=== PATIENT | female | born 1985 | race African-American/Black ===

== ENCOUNTER 2017-11-20 19:27 | Emergency (ER) | payer OTHER ==
[~2017-11-20] VITALS: Ht 167.6 cm; Wt 59.9 kg
[2017-11-20] MEDS ORDERED: ESCI10TA PO (19:47)
[2017-11-20] MEDS ORDERED: LORA-259 PO (19:47)
[2017-11-20] MEDS ORDERED: HYDR-500 PO (19:47)
[2017-11-20 20:28] LABS: BASOPHILS # (AUTO) 0.1 K/uL (0.0-8.0); BASOPHILS % (AUTO) 0.7 % (0.0-2.0); EOSINOPHILS # (AUTO) 0.2 K/uL (0.0-0.7); EOSINOPHILS % (AUTO) 3.4 % (0.0-7.0); HEMATOCRIT 33.5 % (31.2-41.9); HEMOGLOBIN 11.7 g/dL (10.9-14.3); LYMPHOCYTES % (AUTO) 28.7 % (20.5-51.5); MEAN CORPUSCULAR HGB CONC 35 g/dL (32.3-35.6); MEAN CORPUSCULAR VOLUME 99.9 fL (75.5-95.3); MONOCYTES # (AUTO) 0.4 K/uL (2.0-10.0); MONOCYTES % (AUTO) 6.6 % (0.0-11.0); NEUTROPHILS # (AUTO) 4.1 K/uL (1.8-8.9); NEUTROPHILS % (AUTO) 60.6 % (38.5-71.5); PLATELET COUNT (AUTO) 284 K/uL (179-408); RED BLOOD CELL COUNT(AUTO) 3.35 MIL/uL (3.63-4.92); WHITE BLOOD COUNT (AUTO) 6.8 K/uL (3.8-11.8)
[2017-11-20 20:36] LABS: CREATININE 0.8 mg/dL (0.6-1.3); POTASSIUM 3.5 mmol/L (3.5-5.1)
[2017-11-20 20:42] LABS: BILIRUBIN,DIRECT 0.2 mg/dL (0.0-0.2); BILIRUBIN,TOTAL 0.7 mg/dL (0.2-1.0); TOTAL PROTEIN, SERUM 7.6 g/dL (6.4-8.2)
--- NOTE | 2017-11-20 21:40 | NUR ---
Patient discharged to home in stable conditon. Written and verbal after care instructions given. Patient verbalizes understanding of instructions.
[2017-11-20 21:41] VITALS: BP 111/59
== END 2017-11-20 21:41 | disposition home or self-care (01) ==
LOC: ER 19:30
DX: R00.2 Palpitations (principal); G47.9 Sleep disorder, unspecified
CPT/HCPCS: 36415; 70030-TC; 70360; 71045; 84443; 84479; 84703; 85025; 85730; 93005; A4663

== ENCOUNTER 2017-11-24 21:01 | Emergency (ER) | payer OTHER ==
[~2017-11-24] VITALS: Ht 167.6 cm; Wt 60.3 kg
[~2017-11-24 21:01] MED LIST: ESCI10TA PO; HYDR-500 PO; LORA-259 PO
[2017-11-24] MEDS ORDERED: ACETAMINOPHEN ES 500 MG TABLET ONE (22:50)
[2017-11-24] MEDS ORDERED: methylPREDNISolone ACETATE 40 MG VIAL ONE (22:50)
[2017-11-24] MEDS: methylPREDNISolone ACETATE 40 MG VIAL IM ONE (22:52)
[2017-11-24] MEDS: ACETAMINOPHEN 325 MG TABLET PO ONE (22:52)
[2017-11-24 22:53] VITALS: BP 110/66
[2017-11-28] MEDS ORDERED: CHOL10005 PO (20:10)
[2017-11-28] MEDS ORDERED: FERR324T4 PO (20:10)
== END 2017-11-24 22:54 | disposition home or self-care (01) ==
LOC: ER 21:03
DX: I88.9 Nonspecific lymphadenitis, unspecified (principal)
CPT/HCPCS: A4663; A9150; J1030

== ENCOUNTER 2017-12-02 21:56 | Emergency (ER) | payer OTHER ==
[~2017-12-02] VITALS: Ht 167.6 cm; Wt 60.3 kg
[~2017-12-02 21:56] MED LIST changes: +CHOL10005 PO; +FERR324T4 PO
--- NOTE | 2017-12-02 22:23 | NUR ---
Dr. Drake at bedside.
[2017-12-02 22:26] LABS: BASOPHILS # (AUTO) 0.1 K/uL (0.0-8.0); BASOPHILS % (AUTO) 0.9 % (0.0-2.0); EOSINOPHILS # (AUTO) 0.1 K/uL (0.0-0.7); EOSINOPHILS % (AUTO) 1.4 % (0.0-7.0); HEMATOCRIT 34.1 % (31.2-41.9); HEMOGLOBIN 11.7 g/dL (10.9-14.3); LYMPHOCYTES # (AUTO) 2.8 K/uL (20.0-40.0); LYMPHOCYTES % (AUTO) 30.9 % (20.5-51.5); MEAN CORPUSCULAR HEMOGLOBIN 34.4 uug (24.7-32.8); MEAN CORPUSCULAR HGB CONC 34 g/dL (32.3-35.6); MEAN CORPUSCULAR VOLUME 99.9 fL (75.5-95.3); MONOCYTES # (AUTO) 0.6 K/uL (2.0-10.0); MONOCYTES % (AUTO) 7.2 % (0.0-11.0); NEUTROPHILS # (AUTO) 5.3 K/uL (1.8-8.9); NEUTROPHILS % (AUTO) 59.6 % (38.5-71.5); PLATELET COUNT (AUTO) 318 K/uL (179-408); RED BLOOD CELL COUNT(AUTO) 3.41 MIL/uL (3.63-4.92); WHITE BLOOD COUNT (AUTO) 8.9 K/uL (3.8-11.8)
[2017-12-02 22:34] LABS: CREATININE 0.9 mg/dL (0.6-1.3); POTASSIUM 3.7 mmol/L (3.5-5.1)
[2017-12-02 22:40] LABS: BILIRUBIN,DIRECT 0.1 mg/dL (0.0-0.2); BILIRUBIN,TOTAL 0.3 mg/dL (0.2-1.0)
--- NOTE | 2017-12-02 23:35 | NUR ---
Pt out of ER for CT.
--- NOTE | 2017-12-02 23:49 | NUR ---
Pt back to ER from CT.
--- NOTE | 2017-12-03 01:25 | NUR ---
Patient discharged to home in stable conditon. Written and verbal after care instructions given. Patient verbalizes understanding of instructions. Ambulated from ER with stable gait. All belongings with patient.
[2017-12-03 01:26] VITALS: BP 110/78
== END 2017-12-03 01:26 | disposition home or self-care (01) ==
LOC: ER 21:58
DX: R07.89 Other chest pain (principal)
CPT/HCPCS: 36415; 70030-TC; 70490; 84703; 85025; 85730; 93005; A4663

== ENCOUNTER 2017-12-07 19:28 | Emergency (ER) | payer OTHER ==
[~2017-12-07] VITALS: Ht 167.6 cm; Wt 60.3 kg
--- NOTE | 2017-12-07 19:37 | NUR ---
DR. ANDRADE AT BEDSIDE FOR MSE.
--- NOTE | 2017-12-07 20:10 | NUR ---
Patient discharged to home in stable conditon. Written and verbal after care instructions given. Patient verbalizes understanding of instructions. PATIETN LEFT WITH STABLE GAIT.
[2017-12-07 20:11] VITALS: BP 111/56
== END 2017-12-07 20:12 | disposition home or self-care (01) ==
LOC: ER 19:30
DX: F41.9 Anxiety disorder, unspecified (principal); R10.13 Epigastric pain
CPT/HCPCS: 99284; A4663

== ENCOUNTER 2017-12-15 20:08 | Emergency (ER) | payer OTHER ==
[~2017-12-15] VITALS: Ht 167.6 cm; Wt 60.3 kg
--- NOTE | 2017-12-15 20:33 | NUR ---
PT A/OX4, RESPONSIVE TO VERBAL AND TACTILE STIMULI. SPEAKS CLEARLY AND AMBULATES WITHOUT DIFFICULTY. PT C/O HEADACHE, DIFFICULTY SWALLOWING, LIGHT SENSITIVITY, CHEST TIGHTNESS WHEN TAKING A DEEP BREATH THAT STARTED TODAY AROUND 1700. PT DENIES SOB, N/V, NUCHAL RIGIDITY. PT IS AFEBRILE, VSS. PT IN BED, BED IN LOW AND LOCKED POSITION WITH BILATERAL SIDERAILS UP.
--- NOTE | 2017-12-15 20:44 | NUR ---
ER AT BEDSIDE
--- NOTE | 2017-12-15 22:53 | NUR ---
MISAEL DOYLE AT BEDSIDE FOR PT UPDATE
[2017-12-15 23:06] VITALS: BP 106/70
--- NOTE | 2017-12-15 23:06 | NUR ---
Patient discharged to home in stable conditon. Written and verbal after care instructions given. Patient verbalizes understanding of instructions. PT D/C WITH PRESCRIPTION. ALL BELONGINGS TAKEN W/ PT. PT AMBULATED WITHOUT DIFFICULTY.
== END 2017-12-15 23:08 | disposition home or self-care (01) ==
LOC: ER 20:12
DX: J40 Bronchitis, not specified as acute or chronic (principal); R00.1 Bradycardia, unspecified; I95.9 Hypotension, unspecified
CPT/HCPCS: 71045; 93005; 99284; A4663

== ENCOUNTER 2017-12-18 20:59 | Emergency (ER) | payer OTHER ==
[~2017-12-18] VITALS: Ht 167.6 cm; Wt 60.3 kg
[2017-12-18] MEDS ORDERED: IBUPROFEN 600 MG TABLET PO ONE (21:45)
[2017-12-18] MEDS ORDERED: IBUPROFEN 600 MG TABLET ONE (21:57)
[2017-12-18 22:04] LABS: *BILIRUBIN,URIN NEGATIVE (NEGATIVE); *BLOOD, URINE 1+ (NEGATIVE); *CLARITY,URINE CLEAR (CLEAR); *COLOR,URINE YELLOW (YELLOW); *KETONES,URINE NEGATIVE (NEGATIVE); *PROTEIN,URINE NEGATIVE (NEGATIVE); LEUKOCYTE ESTERASE ,URINE NEGATIVE (NEGATIVE); NITRITE, URINE NEGATIVE (NEGATIVE); UGLUCOSE NEGATIVE (NEGATIVE)
[2017-12-18 22:06] LABS: *URINE HCG, QUAL NEGATIVE (NEGATIVE)
[2017-12-18 22:08] LABS: BACTERIA,URINE NONE SEEN /HPF (NONE SEEN); SQUAMOUS EPITHELIAL CELL,UR FEW /HPF (NONE SEEN); WBC,URINE 0-3 /HPF (0-3)
--- NOTE | 2017-12-18 22:41 | NUR ---
Patient discharged to home in stable conditon. Written and verbal after care instructions given. Patient verbalizes understanding of instructions.
== END 2017-12-18 22:44 | disposition home or self-care (01) ==
LOC: ER 21:00
DX: R10.32 Left lower quadrant pain (principal); Z87.891 Personal history of nicotine dependence
CPT/HCPCS: 84703; A4663

== ENCOUNTER 2017-12-19 20:34 | Emergency (ER) | payer OTHER ==
[~2017-12-19] VITALS: Ht 167.6 cm; Wt 60.3 kg
--- NOTE | 2017-12-19 22:08 | NUR ---
Dr. Drake at bedside for MSE.
[2017-12-19 22:35] LABS: BASOPHILS % (AUTO) 0.5 % (0.0-2.0); EOSINOPHILS # (AUTO) 0.2 K/uL (0.0-0.7); EOSINOPHILS % (AUTO) 3.3 % (0.0-7.0); HEMATOCRIT 33.2 % (31.2-41.9); HEMOGLOBIN 11.3 g/dL (10.9-14.3); LYMPHOCYTES # (AUTO) 2.4 K/uL (20.0-40.0); LYMPHOCYTES % (AUTO) 36.8 % (20.5-51.5); MEAN CORPUSCULAR HEMOGLOBIN 34.3 uug (24.7-32.8); MEAN CORPUSCULAR HGB CONC 34 g/dL (32.3-35.6); MEAN CORPUSCULAR VOLUME 100.4 fL (75.5-95.3); MONOCYTES # (AUTO) 0.5 K/uL (2.0-10.0); MONOCYTES % (AUTO) 7.5 % (0.0-11.0); NEUTROPHILS # (AUTO) 3.4 K/uL (1.8-8.9); NEUTROPHILS % (AUTO) 51.9 % (38.5-71.5); PLATELET COUNT (AUTO) 267 K/uL (179-408); RED BLOOD CELL COUNT(AUTO) 3.31 MIL/uL (3.63-4.92); WHITE BLOOD COUNT (AUTO) 6.5 K/uL (3.8-11.8)
[2017-12-19 22:42] LABS: CREATININE 0.8 mg/dL (0.6-1.3); POTASSIUM 3.7 mmol/L (3.5-5.1)
[2017-12-19 22:47] LABS: BILIRUBIN,DIRECT 0.1 mg/dL (0.0-0.2); BILIRUBIN,TOTAL 0.4 mg/dL (0.2-1.0)
--- NOTE | 2017-12-20 00:02 | NUR ---
Patient discharged to home in stable conditon. Written and verbal after care instructions given. Patient verbalizes understanding of instructions. Pt ambulated out of ER with steady gait, no acute signs of distress, VSS, all belongings taken.
[2017-12-20 00:03] VITALS: BP 110/68
== END 2017-12-20 00:04 | disposition home or self-care (01) ==
LOC: ER 20:36
DX: R07.89 Other chest pain (principal); F17.200 Nicotine dependence, unspecified, uncomplicated
CPT/HCPCS: 36415; 70030-TC; 85025; 85730; 93005; A4663

== ENCOUNTER 2017-12-22 19:04 | Emergency (ER) | payer OTHER ==
[~2017-12-22] VITALS: Ht 167.6 cm; Wt 59.0 kg
--- NOTE | 2017-12-22 20:00 | NUR ---
Patient discharged to home in stable conditon. Written and verbal after care instructions given. Patient verbalizes understanding of instructions. Walked out of ER with no distress noted
[2017-12-22 20:01] VITALS: BP 108/59
== END 2017-12-22 20:02 | disposition home or self-care (01) ==
LOC: ER 19:05
DX: J40 Bronchitis, not specified as acute or chronic (principal); F17.200 Nicotine dependence, unspecified, uncomplicated
CPT/HCPCS: 71045; 93005; 99284; A4663

== ENCOUNTER 2017-12-27 11:02 | Emergency (ER) | payer OTHER ==
[~2017-12-27] VITALS: Ht 167.6 cm; Wt 59.0 kg
[2017-12-27] MEDS ORDERED: ONDANSETRON 4 MG/2 ML VIAL IV ONE (11:45)
[2017-12-27] MEDS ORDERED: HYDROMORPHONE 1 MG/1 ML DISP.SYRIN IV ONE (11:45)
[2017-12-27] MEDS ORDERED: IV NORMAL SALINE 1000 ML BAG IV ONE (11:45)
--- NOTE | 2017-12-27 11:45 | NUR ---
pt refused pain and nausea medicine at this time.
[2017-12-27] MEDS ORDERED: ONDANSETRON 4 MG/2 ML VIAL ONE (11:52)
[2017-12-27] MEDS ORDERED: HYDROMORPHONE 1 MG/1 ML DISP.SYRIN ONE (11:52)
[2017-12-27 11:55] LABS: BASOPHILS % (AUTO) 0.9 % (0.0-2.0); EOSINOPHILS # (AUTO) 0.2 K/uL (0.0-0.7); HEMOGLOBIN 12.2 g/dL (10.9-14.3); LYMPHOCYTES # (AUTO) 1.6 K/uL (20.0-40.0); MEAN CORPUSCULAR HGB CONC 34 g/dL (32.3-35.6); MEAN CORPUSCULAR VOLUME 100.1 fL (75.5-95.3); MONOCYTES # (AUTO) 0.6 K/uL (2.0-10.0); MONOCYTES % (AUTO) 11.2 % (0.0-11.0); NEUTROPHILS # (AUTO) 2.6 K/uL (1.8-8.9); NEUTROPHILS % (AUTO) 51.9 % (38.5-71.5); PLATELET COUNT (AUTO) 255 K/uL (179-408)
[2017-12-27 12:03] LABS: CREATININE 0.9 mg/dL (0.6-1.3)
--- NOTE | 2017-12-27 13:48 | NUR ---
Patient discharged to home in stable conditon. Written and verbal after care instructions given. Patient verbalizes understanding of instructions.pt walks in steady gait. pt says fels better. pt not driving.
[2017-12-27 13:49] VITALS: BP 111/65
== END 2017-12-27 13:50 | disposition home or self-care (01) ==
LOC: ER 11:02
DX: G43.909 Migraine, unspecified, not intractable, without status migrainosus (principal); F17.200 Nicotine dependence, unspecified, uncomplicated
CPT/HCPCS: 36415; 70450; 80048; 85025; 96361; 96374; 96375; 99285; A4663; J1170; J2405; J7030

== ENCOUNTER 2017-12-30 19:36 | Emergency (ER) | payer OTHER ==
[~2017-12-30] VITALS: Ht 167.6 cm; Wt 62.6 kg
--- NOTE | 2017-12-30 20:53 | NUR ---
PT A/OX4, RESPONSIVE TO VERBAL AND TACTILE STIMULI. PT C/O L BREAST TENDERNESS THAT STARTED YESTERDAY AND HAS BEEN INTERMITTENT. L BREAST PAIN IS PROVOKED UPON TOUCH, DOES NOT RADIATE, 12/29. PT STATES THE L BREAST IS SWOLLEN TO TOUCH. PT DENIES C/P, SOB, N/V/D, DIZZINESS, HEADACHE. PT SELF-AMBULATED TO BED WITHOUT DIFFICULTY. BED IN LOW AND LOCKED WITH BILATERAL SIDERAILS UP.
--- NOTE | 2017-12-30 21:06 | NUR ---
XRAY AT BEDSIDE.
--- NOTE | 2017-12-30 21:09 | NUR ---
[employer] MATE AT BEDSIDE.
[2017-12-30 21:20] LABS: BASOPHILS # (AUTO) 0.1 K/uL (0.0-8.0); BASOPHILS % (AUTO) 0.8 % (0.0-2.0); EOSINOPHILS # (AUTO) 0.2 K/uL (0.0-0.7); HEMATOCRIT 34.4 % (31.2-41.9); HEMOGLOBIN 11.7 g/dL (10.9-14.3); LYMPHOCYTES # (AUTO) 2.9 K/uL (20.0-40.0); LYMPHOCYTES % (AUTO) 41.9 % (20.5-51.5); MEAN CORPUSCULAR HEMOGLOBIN 33.6 uug (24.7-32.8); MEAN CORPUSCULAR HGB CONC 34 g/dL (32.3-35.6); MEAN CORPUSCULAR VOLUME 98.4 fL (75.5-95.3); MONOCYTES # (AUTO) 0.5 K/uL (2.0-10.0); MONOCYTES % (AUTO) 7.5 % (0.0-11.0); NEUTROPHILS # (AUTO) 3.2 K/uL (1.8-8.9); NEUTROPHILS % (AUTO) 46.8 % (38.5-71.5); PLATELET COUNT (AUTO) 267 K/uL (179-408); WHITE BLOOD COUNT (AUTO) 6.8 K/uL (3.8-11.8)
[2017-12-30 21:28] LABS: CREATININE 0.8 mg/dL (0.6-1.3); POTASSIUM 3.7 mmol/L (3.5-5.1)
[2017-12-30 21:34] LABS: BILIRUBIN,DIRECT 0.1 mg/dL (0.0-0.2); BILIRUBIN,TOTAL 0.2 mg/dL (0.2-1.0); TOTAL PROTEIN, SERUM 7.4 g/dL (6.4-8.2)
--- NOTE | 2017-12-30 21:55 | NUR ---
US TECH AT BEDSIDE.
--- NOTE | 2017-12-30 23:55 | NUR ---
DPatient discharged to home in stable conditon. Written and verbal after care instructions given. Patient verbalizes understanding of instructions. PT SELF-AMBULATES WITHOUT DIFFICULTY. ALL BELONGINGS W/ PT.
[2017-12-30 23:56] VITALS: BP 112/66
== END 2017-12-31 00:07 | disposition home or self-care (01) ==
LOC: ER 19:37
DX: R07.89 Other chest pain (principal); F17.200 Nicotine dependence, unspecified, uncomplicated
CPT/HCPCS: 36415; 71045; 80048; 80076; 84484; 84702; 85025; 85379; 85730; 93005; 93970; 99285; A4663; 70030-TC

== ENCOUNTER 2018-01-17 21:53 | Emergency (ER) | payer OTHER ==
[~2018-01-17] VITALS: Ht 167.6 cm; Wt 64.9 kg
--- NOTE | 2018-01-17 22:25 | NUR ---
Female commissions specialist accompanied female patient for .
[2018-01-17 22:39] LABS: BASOPHILS # (AUTO) 0.1 K/uL (0.0-8.0); BASOPHILS % (AUTO) 1.2 % (0.0-2.0); EOSINOPHILS # (AUTO) 0.1 K/uL (0.0-0.7); EOSINOPHILS % (AUTO) 1.9 % (0.0-7.0); HEMATOCRIT 35.7 % (31.2-41.9); HEMOGLOBIN 12.3 g/dL (10.9-14.3); LYMPHOCYTES # (AUTO) 2.4 K/uL (20.0-40.0); LYMPHOCYTES % (AUTO) 37.8 % (20.5-51.5); MEAN CORPUSCULAR HEMOGLOBIN 34.2 uug (24.7-32.8); MEAN CORPUSCULAR HGB CONC 35 g/dL (32.3-35.6); MEAN CORPUSCULAR VOLUME 99.2 fL (75.5-95.3); MONOCYTES # (AUTO) 0.6 K/uL (2.0-10.0); MONOCYTES % (AUTO) 9.1 % (0.0-11.0); NEUTROPHILS # (AUTO) 3.2 K/uL (1.8-8.9); PLATELET COUNT (AUTO) 330 K/uL (179-408); WHITE BLOOD COUNT (AUTO) 6.5 K/uL (3.8-11.8)
[2018-01-17 23:06] LABS: BILIRUBIN,DIRECT 0.1 mg/dL (0.0-0.2); BILIRUBIN,TOTAL 0.2 mg/dL (0.2-1.0); CREATININE 0.9 mg/dL (0.6-1.3)
--- NOTE | 2018-01-17 23:56 | NUR ---
Patient discharged to home in stable conditon. Written and verbal after care instructions given. Patient verbalizes understanding of instructions. Pt ambulated out of ER in steady gait with daughter. All belongings with pt. VSS. NAD noted.
[2018-01-17 23:57] VITALS: BP 112/66
== END 2018-01-17 23:58 | disposition home or self-care (01) ==
LOC: ER 21:56
DX: R07.89 Other chest pain (principal); F17.200 Nicotine dependence, unspecified, uncomplicated
CPT/HCPCS: 36415; 70030-TC; 71045; 85025; 85730; 93005; A4663

== ENCOUNTER 2018-02-06 04:41 | Emergency (ER) | payer OTHER ==
[~2018-02-06] VITALS: Ht 167.6 cm; Wt 63.5 kg
[2018-02-06] MEDS ORDERED: KETOROLAC TROMETHAMINE 60 MG INJ IM ONE ×2 (05:30→05:31)
--- NOTE | 2018-02-06 05:50 | NUR ---
C/O CP & STATES LT. BREAST HAS BEEN HURTING HER ALL DAY. DENIES ANY SOB,GONCALVES, N/V,DIZZINESS. A&OX4. ABLE TO FOLLOW COMMANDS & SPEAK IN FULL SENTENCES. SPEECH CLEAR.
[2018-02-06 06:01] VITALS: BP 108/64
== END 2018-02-06 05:30 | disposition home or self-care (01) ==
LOC: ER 04:42
DX: R07.89 Other chest pain (principal); F17.200 Nicotine dependence, unspecified, uncomplicated
CPT/HCPCS: 93005; 96372; 99283; J1885; A4663

== ENCOUNTER 2018-02-19 16:15 | Emergency (ER) | payer OTHER ==
[~2018-02-19] VITALS: Ht 167.6 cm; Wt 63.5 kg
--- NOTE | 2018-02-19 16:25 | NUR ---
DR BRENNER EVALUATED THE PT. PT IS IN ROOM #2B.
--- NOTE | 2018-02-19 16:55 | NUR ---
Mauro maguire in [facility] - 02/19/18 at 1656 by KAELA exit care instructions and prescription given to patient. aunt at the bedside.discharged home
--- NOTE | 2018-02-19 17:06 | NUR ---
PT WAS D/C TO HOME. D/C INSTRUCTIONS GIVEN TO THE PT.
[2018-02-19 17:07] VITALS: BP 135/77
== END 2018-02-19 17:08 | disposition home or self-care (01) ==
LOC: ER 16:17
DX: J06.9 Acute upper respiratory infection, unspecified (principal); F17.200 Nicotine dependence, unspecified, uncomplicated; M79.10 Myalgia, unspecified site
CPT/HCPCS: 36415; 71045; 86403; 87070; A4663

== ENCOUNTER 2018-02-28 02:35 | Emergency (ER) | payer OTHER ==
[~2018-02-28] VITALS: Ht 167.6 cm; Wt 63.5 kg
--- NOTE | 2018-02-28 03:09 | NUR ---
Pt. ambulated into ED w/ daughter w/ c/o of feeling "weird", states "inside my head it feels like it's on fire" and "inside my body it feels like its itchy", denies CP/GONCALVES/F/C/N/V, currently taking Amoxacillin for throat infection,
[2018-02-28] MEDS ORDERED: AMOXICILLIN (03:10)
--- NOTE | 2018-02-28 03:27 | NUR ---
Patient discharged to home in stable conditon. Written and verbal after care instructions given. Patient verbalizes understanding of instructions. Pt. d/c per MD orders, all belongings taken, VSS, no acute distress, left w/ daughter in private vehicle,
== END 2018-02-28 03:32 | disposition home or self-care (01) ==
LOC: ER 02:36
DX: R51 Headache (principal); F17.200 Nicotine dependence, unspecified, uncomplicated; Z79.2 Long term (current) use of antibiotics; Z79.899 Other long term (current) drug therapy
CPT/HCPCS: A4663